=== PATIENT | female | born 1995 | race Caucasian/White ===

== ENCOUNTER 2017-02-15 12:10 | Emergency (ER) | payer SELFPAY ==
[~2017-02-15] VITALS: Ht 167.6 cm; Wt 48.0 kg
[2017-02-15 12:22] LABS: GLUCOSE,POINT OF CARE 100 MG/DL (70-110)
[2017-02-15 12:36] VITALS: BP 125/82
[2017-02-15 12:52] LABS: APPEARANCE,URINE CLEAR (CLEAR); GLUCOSE, URINE (UA) NEGATIVE (NEGATIVE); KETONES,URINE NEGATIVE (NEGATIVE); LEUKOCYTE ESTERASE ,URINE NEGATIVE (NEGATIVE); OCCULT BLOOD,URINE NEGATIVE (NEGATIVE); PH,URINE 5.5 (5.0-8.0); PROTEIN,URINE NEGATIVE (NEGATIVE)
[2017-02-15 12:56] LABS: RBC,URINE 0-2 /HPF (0-2); SQUAMOUS EPITHELIAL CELL,UR Moderate /LPF (None Seen); WBC,URINE 0-2 /HPF (0-5)
[2017-02-16 14:14] LABS: HEPATITIS Bs ANTIGEN SCREEN P Negative (Negative); HEPATITIS C AB SCREEN 0.1 s/co ratio (0.0-0.9)
== END 2017-02-15 13:20 | disposition home or self-care (01) ==
LOC: EMS 12:16
DX: N39.0 Urinary tract infection, site not specified (principal); E11.9 Type 2 diabetes mellitus without complications; F17.210 Nicotine dependence, cigarettes, uncomplicated
CPT/HCPCS: 80074; 81025; 82962; 99284